=== PATIENT | female | born 1985 | race Hispanic/Latino ===

== ENCOUNTER 2018-08-24 09:02 | Outpatient (CLI) | payer OTHER ==
--- NOTE | 2018-08-24 09:36 | RAD ---
3 VIEWS LUMBAR SPINE: Date 08/24/18 HISTORY: Flexion and extension imaging, spondylolisthesis. FINDINGS: The neutral lateral examination demonstrates normal vertebral body height and alignment. No anterolis thesis or retrolisthesis is evident on flexion or extension views. IMPRESSION: No anterolisthesis or retrolisthesis seen on the neutral flexion or extension lateral views. POS: [facility]
== END 2018-08-24 09:03 | disposition home or self-care (01) ==
LOC: RAD 09:02
PROVIDERS: ATTEND Specialist
DX: M43.16 Spondylolisthesis, lumbar region (principal); M51.16 Intervertebral disc disorders with radiculopathy, lumbar region
CPT/HCPCS: 72100

== ENCOUNTER 2018-09-05 09:34 | Outpatient (CLI) | payer OTHER ==
--- NOTE | 2018-09-05 10:40 | MRI ---
MRI of the thoracic spine: 09/05/2018 COMPARISON: None HISTORY: Thoracic radiculopathy TECHNIQUE: Multiplanar multisequence MR imaging of the thoracic spine obtained without contrast FINDINGS: The sagittal STIR imaging demonstrates no focal area of osseous marrow edema. There is a pr obable small T11 hemangioma. There is no anterolisthesis or retrolisthesis noted within the thoracic spine. The T1-2, T2-3, T3-4, T4-5, and T5-6 levels are unremarkable. T6-7: Minimal disc bulge. Disc space narrowing and mild desiccation. Mild anterior osteophyte formati on. No significant central canal or neural foraminal stenosis. T7-8: There is disc space narrowing and disc desiccation with mild anterior osteophyte formation. The re is a tiny left paracentral disc protrusion. No significant central canal or neural foraminal stenosis T8-9: Small central disc protrusion. Disc space narrowing and disc desiccation. No significant centra l canal or neural foraminal stenosis. T9-10: Mild disc space narrowing and disc desiccation. No significant central canal or neural foramin al stenosis. T10-11: No significant central canal or neural foraminal stenosis T11-12: No significant central canal or neural foraminal stenosis T12-L1: No significant central canal or neural foraminal stenosis. No focal area of abnormal signal intensity is identified within the thoracic cord. IMPRESSION: Mild thoracic spine degenerative change. No significant central canal or neural foraminal stenosis.
== END 2018-09-05 09:35 | disposition home or self-care (01) ==
LOC: BICMRI 09:34
PROVIDERS: ATTEND Specialist
DX: M47.24 Other spondylosis with radiculopathy, thoracic region (principal)
CPT/HCPCS: 72146